=== PATIENT | female | born 1995 | race Hispanic/Latino ===

== ENCOUNTER 2022-01-14 16:23 | Emergency (ER) | payer SELFPAY ==
[2022-01-14 17:02] LABS: #Basophils 0.1 thou/uL (0.0-0.2); #Eosinphils 0.1 thou/uL (0.0-0.7); #Lymphocytes 2.3 thou/uL (1.20-3.40); #Monocytes 0.5 thou/uL (0.11-0.59); #Neutrophils 7.1 thou/uL (1.40-6.50); %Basophils 0.7 % (0.0-1.0); %Eosinophils 0.8 % (0.0-10.0); %Lymphocytes 23.1 % (21.0-51.0); %Monocytes 4.6 % (0.0-10.0); %Neutrophils 70.9 % (42.0-75.0); Hemoglobin 13.5 g/dL (12.0-16.0); Mean Corpuscular HGB CONC 33.2 g/dL (32.0-36.0); Mean Corpuscular Hemoglobin 32.9 pg (27.0-31.0); Mean Corpuscular Volume 99.2 fL (78.0-98.0); Mean Platelet Volume 6.1 fL (7.4-10.4); Platelet Count 307 thou/uL (130-400); White Blood Cell (WBC) Count 10.1 thou/uL (4.8-10.8)
[2022-01-14 17:03] LABS: BHCG - Serum Negative (NEGATIVE); Pregs Control Background? CLEAR/WHITE (CLR/WHITE); Pregs Control Bar Appear? YES (CONTROL BAR)
[2022-01-14 17:21] LABS: ALT (SGPT) 21 U/L (8-55); AST (SGOT) 17 U/L (5-34); Albumin 3.7 g/dL (3.5-5.0); Alkaline Phosphatase 103 U/L (40-110); Anion Gap 14 mmol/L (10-20); BUN (Urea Nitrogen) 12 mg/dL (7.0-18.7); Bilirubin, Total 0.2 mg/dL (0.2-1.2); Calc. Creatinine Clearance 0 mL/min (70-130); Calcium 8.9 mg/dL (7.8-10.44); Carbon Dioxide 26 mmol/L (22-29); Chloride 104 mmol/L (98-107); Globulin 3.5 g/dL (2.4-3.5); Glucose 92 mg/dL (70-105); Potassium 3.9 mmol/L (3.5-5.1); Protein, Total 7.2 g/dL (6.0-8.3); Sodium 140 mmol/L (136-145)
[2022-01-14] MEDS ORDERED: Ketorolac Tromethamine 30 MG/ML VIAL ONE (18:10)
[2022-01-14] MEDS ORDERED: Dicyclomine 20 MG/2 ML VIAL ONE (18:10)
[2022-01-14] MEDS ORDERED: Ondansetron ODT 4 MG TAB ONE (18:10)
[2022-01-14 18:24] LABS: Bilirubin Negative (Negative); Clarity Turbid (Clear); Glucose, Urine (Dipstick) Normal (Negative); Ketone, Urine Negative (Negative); Leukocyte 25 Leu/uL (Negative); Nitrite Negative (Negative); Pregnancy Test - Urine (BHCG) Negative (Negative); Protein, Urine (Dipstick) Negative (Neg-Trace); Specific Gravity, Urine 1.014 (1.002-1.036); Urobilinogen Normal mg/dL (Less than 2); pH, Urine 7.5 (5.0-9.0)
[2022-01-14 18:25] LABS: Bacteria/HPF None Seen HPF (None Seen); Blood, Urine Negative (Negative); Pregu Control Background? CLEAR/WHITE (CLR/WHITE); Pregu Control Bar Appear? YES (CONTROL BAR); RBC/HPF 0-3 HPF (0-3); Specific Gravity 1.014 (1.002-1.036); WBC/HPF 0-3 HPF (0-3)
== END 2022-01-14 18:25 | disposition home or self-care (01) ==
LOC: ERS 16:23
DX: K52.9 Noninfective gastroenteritis and colitis, unspecified (principal)
CPT/HCPCS: 36415; 80053; 81003; 81015; 81025; 84703; 85025; 96372; J0500; J1885; Q0162

== ENCOUNTER 2022-01-21 10:17 | Emergency (ER) | payer SELFPAY | END 2022-01-21 10:27 | disposition home or self-care (01) | LOC: ERS 10:17 | DX: R05.9 Cough, unspecified (principal) | CPT/HCPCS: 99283 ==